=== PATIENT | male | born 2000 | race Caucasian/White ===

== ENCOUNTER 2022-12-13 04:55 | Emergency (ER) | payer BC | END 2022-12-13 05:47 | disposition home or self-care (01) | LOC: CSHERS 04:55 | DX: S61.412A Laceration without foreign body of left hand, initial encounter (principal); F17.210 Nicotine dependence, cigarettes, uncomplicated; W25.XXXA Contact with sharp glass, initial encounter | CPT/HCPCS: 12002 ==